=== PATIENT | female | born 2000 | race African-American/Black ===

== ENCOUNTER 2020-12-01 08:00 | Inpatient (IN) ==
[2020-12-01] MEDS ORDERED: FAMOTIDINE 20 MG/2 ML VIAL IV ONE (08:55)
[2020-12-01] MEDS ORDERED: CITRIC ACID/SODIUM CITRATE 30 ML UDCUP PO ONE (08:55)
[2020-12-01] MEDS ORDERED: ceFAZolin 2,000 MG in PREMIX 1 EACH IV ONE (08:55)
[2020-12-01] MEDS ORDERED: LACTATED RINGERS 1,000 ML IV ONE (08:59)
[2020-12-01] MEDS ORDERED: OXYTOCIN 10 UNIT/ML VIAL IM ONE (09:00)
[2020-12-01] MEDS ORDERED: LACTATED RINGERS 1,000 ML IV SCH ×2 (09:00→11:00)
[2020-12-01] MEDS ORDERED: OXYTOCIN/LR 30 UNIT/1,000 ML BAG IV ONE (09:00)
[2020-12-01 09:15] LABS: Basophils % 0.4 % (0.0-0.8); Eosinophils # 0.1 10*3/uL (0.0-0.87); Eosinophils % 1.1 % (0.00-10.9); Hematocrit 34.7 VOL% (35.7-47.0); Hemoglobin 11.1 GM/DL (12.0-16.0); Immature Granulocytes % 0.5 %; Immature Granulocytes Absolute 0.04 #; Lymphocytes # 2.9 10*3/uL (1.4-4.0); Mean Platelet Volume 11.5 FL (9.6-12.0); Monocytes % 5.8 % (1.7-12.7); Neutrophils % 53.2 % (38.7-73.9); Platelet Count 224 T/CUMM (130-400); Red Blood Count 3.99 MC/CUMM (3.8-5.5); Red Cell Distribution Width 13.7 % (9.3-17.3); White Blood Count 7.4 T/CUMM (4-12)
[2020-12-01] MEDS ORDERED: METOCLOPRAMIDE 10 MG/2 ML VIAL ONE (09:31)
[2020-12-01] MEDS ORDERED: propofoL 200 MG/20 ML VIAL IV ONE (09:33)
[2020-12-01] MEDS ORDERED: MIDAZOLAM 2 MG/2 ML VIAL ONE (09:33)
[2020-12-01] MEDS ORDERED: SUCCINYLCHOLINE 200 MG/10 ML VIAL ONE (09:33)
[2020-12-01] MEDS ORDERED: fentaNYL 250 MCG/5 ML VIAL ONE (09:34)
[2020-12-01 09:38] LABS: Alanine Aminotransferase 18 U/L (13-56); Albumin 2.8 G/DL (3.4-5.0); Alkaline Phosphatase 211 U/L (45-117); Aspartate Amino Transferase 24 U/L (0-37); Bilirubin,Total < 0.39 MG/DL (0.2-1.0); Blood Urea Nitrogen 5 MG/DL (7-18); Calcium 8.6 MG/DL (8.5-10.1); Carbon Dioxide 24 MMOL/L (21-32); Estimated Glom Filtration Rate 121 ML/MIN; Glucose 80 MG/DL (74-106); Osmolality,Calculated 272.5 MOS/KG (273-304); Potassium 4.1 MMOL/L (3.5-5.1); Sodium 139 MMOL/L (136-145); Total Protein 7.6 G/DL (6.4-8.2)
[2020-12-01] MEDS ORDERED: DEXAMETHASONE 4 MG/1 ML VIAL ONE (10:17)
[2020-12-01] MEDS ORDERED: ROPIVACAINE 0.5% 30 ML VIAL ONE (10:17)
[2020-12-01] MEDS ORDERED: BUPIVACAINE MPF 0.25% 30 ML VIAL ONE (10:17)
[2020-12-01] MEDS ORDERED: ONDANSETRON 4 MG/2 ML VIAL ONE (10:17)
[2020-12-01] MEDS ORDERED: ROCURONIUM 50 MG/5 ML VIAL IV ONE (10:18)
[2020-12-01] MEDS ORDERED: PHENYLEPHRINE 1 MG/10 ML SYRINGE IV ONE (10:18)
[2020-12-01] MEDS ORDERED: RHO(D) IMMUNE GLOBULIN 300 MCG SYRINGE IM ONE (10:35)
[2020-12-01] MEDS ORDERED: OXYTOCIN/LR 20 UNIT/1,000 ML BAG IV ONE (10:35)
[2020-12-01] MEDS ORDERED: ONDANSETRON 4 MG/2 ML VIAL IV PRN (10:35)
[2020-12-01] MEDS ORDERED: ACETAMINOPHEN 325 MG TABLET PO PRN (10:35)
[2020-12-01 10:40] LABS: Cord Venous Blood HCO3 23.3 MMOL/L; Cord Venous Blood PO2 40.4
[2020-12-01 10:46] LABS: Bacteria,Urine Occasional /HPF (Few); Bilirubin,Urine Negative (Negative); Blood, Urine Small mg/dL (Negative); Glucose,Urine (UA) Negative (Negative); Ketones,Urine Negative (Negative); Mucus,Urine Few /LPF (Occasional); Nitrite,Urine Negative (Negative); Protein,Urine Negative; RBC,Urine 6 /HPF (0-4); Urine Appearance CLEAR (Clear); Urine Color Yellow (Yellow); Urine Specific Gravity 1.011 (1.001-1.035); Urine Urobilinogen < 2.0 EU/DL (0.2-1.0); WBC,Urine <1 /HPF (0-6)
[2020-12-01] MEDS ORDERED: KETOROLAC 30 MG/1 ML VIAL ONE (10:47)
[2020-12-01] MEDS ORDERED: GLYCOPYRROLATE 0.4 MG/2 ML VIAL ONE (10:47)
[2020-12-01] MEDS ORDERED: NEOSTIGMINE 10 MG/10 ML VIAL ONE ×2 (10:47→12:16)
[2020-12-01] MEDS ORDERED: SEVOFLURANE 1 UNIT/15 MINUTE INH ONE (10:47)
[2020-12-01] MEDS: ceFAZolin 1,000 MG in SYRINGE 1 EACH IV SCH (18:17)
[2020-12-01 18:23] LABS: Basophils % 0.1 % (0.0-0.8); Hematocrit 31.5 VOL% (35.7-47.0); Hemoglobin 10.1 GM/DL (12.0-16.0); Immature Granulocytes % 0.7 %; Immature Granulocytes Absolute 0.13 #; Lymphocytes # 1.3 10*3/uL (1.4-4.0); Lymphocytes % 6.4 % (21.3-54.2); Mean Corpuscular HGB Conc 32.1 GM/DL (32-36); Mean Corpuscular Volume 87.5 FL (87-102); Mean Platelet Volume 11.3 FL (9.6-12.0); Monocytes % 1.8 % (1.7-12.7); Platelet Count 240 T/CUMM (130-400); Red Cell Distribution Width 13.6 % (9.3-17.3); White Blood Count 19.8 T/CUMM (4-12)
[2020-12-01 18:45] LABS: Segmented Neutrophils 98 % (50-85); Total Cells Counted 100
[2020-12-02] MEDS: ceFAZolin 1,000 MG in SYRINGE 1 EACH IV SCH (02:15)
[2020-12-02] MEDS: DOCUSATE SODIUM 100 MG CAPSULE PO SCH ×3 (05:03→21:24)
[2020-12-02] MEDS: IBUPROFEN 800 MG TABLET PO PRN (05:08)
[2020-12-02 05:56] LABS: Basophils % 0.2 % (0.0-0.8); Eosinophils % 0.1 % (0.00-10.9); Hemoglobin 8.7 GM/DL (12.0-16.0); Immature Granulocytes % 0.7 %; Immature Granulocytes Absolute 0.13 #; Lymphocytes % 16.8 % (21.3-54.2); Mean Corpuscular HGB Conc 32.2 GM/DL (32-36); Mean Corpuscular Volume 87.7 FL (87-102); Mean Platelet Volume 11.3 FL (9.6-12.0); Monocytes % 6.6 % (1.7-12.7); Neutrophils % 75.6 % (38.7-73.9); Platelet Count 220 T/CUMM (130-400); Red Blood Count 3.08 MC/CUMM (3.8-5.5); Red Cell Distribution Width 13.9 % (9.3-17.3); White Blood Count 17.8 T/CUMM (4-12)
[2020-12-02] MEDS: FERROUS SULFATE 325 MG TABLET PO SCH ×2 (08:44→21:24)
[2020-12-02] MEDS: METOCLOPRAMIDE 10 MG TABLET PO SCH ×3 (08:44→23:45)
[2020-12-02] MEDS: MULTIVITAMIN (PRENATAL) TABLET PO SCH (08:45)
[2020-12-02] MEDS: SIMETHICONE CHEW 80 MG TABLET PO PRN ×2 (08:45→17:21)
[2020-12-02] MEDS: MAGNESIUM HYDROXIDE SUSP 30 ML UDCUP PO PRN ×2 (13:36→21:24)
[2020-12-03] MEDS: IBUPROFEN 800 MG TABLET PO PRN (05:15)
[2020-12-03] MEDS ORDERED: BISACODYL 10 MG SUPP RECTAL PRN (07:28)
[2020-12-03] MEDS ORDERED: MAGNESIUM CITRATE 300 ML BOTTLE PO ONE (07:29)
[2020-12-03] MEDS: METOCLOPRAMIDE 10 MG TABLET PO SCH (07:32)
[2020-12-03 07:36] VITALS: BP 118/71
[2020-12-03] MEDS: FERROUS SULFATE 325 MG TABLET PO SCH (08:39)
[2020-12-03] MEDS: DOCUSATE SODIUM 100 MG CAPSULE PO SCH (08:39)
[2020-12-03] MEDS: MULTIVITAMIN (PRENATAL) TABLET PO SCH (08:40)
[2020-12-03] MEDS: SIMETHICONE CHEW 80 MG TABLET PO PRN (08:41)
== END 2020-12-03 13:25 | disposition home or self-care (01) | DRG 788 ==
LOC: N.LDOUT 08:00 → N.LD 08:07 → N.OB 13:56
PROVIDERS: ADMIT Obstetrics & Gynecology; ATTEND Obstetrics & Gynecology
PROC: LDCSECT (ICD-10-PCS; 2020-12-01 09:30)